=== PATIENT | female | born 1955 | race Caucasian/White ===

== ENCOUNTER 2022-06-01 09:15 | Observation (INO) ==
--- NOTE | 2022-04-26 14:07 | PAT Medication Instructions ---
Medication Instructions Date of Service April 26, 2022 Home Medications acetaminophen 325 mg tablet 325 mg PO QID PRN Pain ascorbic acid (vitamin C) 500 mg tablet,extended release (Vitamin C ER) 500 mg PO QAM fluticasone 250 mcg-salmeterol 50 mcg/dose blistr powdr for inhalation (Advair Diskus) 1 inh inhalation BID DO NOT take the morning of surgery ascorbic acid (vitamin C) 500 mg tablet,extended release (Vitamin C ER) 500 mg PO QAM Take morning of surgery With a small sip of water, OTHERWISE NOTHING TO EAT OR DRINK AFTER MIDNIGHT: acetaminophen 325 mg tablet 325 mg PO QID PRN Pain (if needed) fluticasone 250 mcg-salmeterol 50 mcg/dose blistr powdr for inhalation (Advair Diskus) 1 inh inhalation BID Take evening before surgery acetaminophen 325 mg tablet 325 mg PO QID PRN Pain (if needed) fluticasone 250 mcg-salmeterol 50 mcg/dose blistr powdr for inhalation (Advair Diskus) 1 inh inhalation BID Other Notes If you have any questions please call us at [phone] or [phone] or [phone] or [phone]
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
[~2022-06-01 09:15] MED LIST: ACETAMINOPHEN 500 MG TAB PO SCH; BUPIVACAINE 0.25% PF 30 ML VIAL ONE; BUPIVACAINE 0.5 % 5 MG/1 ML PF 10ML VIAL ONE; DEXAMETHASONE SOD INJ 4 MG/ML VIAL ONE; EPINEPHrine INJ 1 MG/ML AMP ONE; FAMOTIDINE 20 MG TAB PO SCH; GABAPENTIN 300 MG CAP PO SCH; LR 500ML BOLUS, THEN 15ML/HR IV SCH; METOCLOPRAMIDE HCL 10 MG TABLET PO SCH; ROPIVACAINE 0.5% HCL/PF 150 MG, BUPIVACAINE 0.75% MPF 20 ML, EPINEPHrine 30MG/30ML (OR ... INSTIL SCH; TRANEXAMIC ACID 1,000 MG **IV Intra-op IV SCH; TRANEXAMIC ACID 1,000 MG **IV Pre-op IV SCH; ceFAZolin 2000MG 2,000 MG/15 ML SYR IV SCH; dexAMETHasone 4 MG TAB PO SCH
--- NOTE | 2022-06-01 10:11 | History & Physical Bridge Note ---
Date of Service June 01, 2022 History & Physical Bridge Note I have examined the patient, reviewed the History & Physical and in the interval since the performance of the History & Physical I have noted the following changes of clinical significance: no changes noted
[2022-06-01] MEDS ORDERED: ePHEDrine sulfate 50 MG/ML AMP IV PRN (11:58)
[2022-06-01] MEDS ORDERED: ATROPINE SULFATE 0.1 MG/ML 10ML SYR IV PRN (11:58)
[2022-06-01] MEDS ORDERED: ONDANSETRON INJ 2 MG/ML 2 ML VIAL IV PRN ×2 (11:58→16:23)
[2022-06-01] MEDS ORDERED: fentaNYL citrate PF 100 MCG/2 ML VIAL IV PRN (11:58)
[2022-06-01] MEDS ORDERED: PROMETHAZINE HCL 6.25 MG in SODIUM CHLORIDE 0.9% 50 ML IV PRN (11:58)
[2022-06-01] MEDS ORDERED: MIDAZOLAM HCL 1 MG/ML 2ML VIAL ONE ×2 (12:06→14:07)
[2022-06-01] MEDS ORDERED: ORTHO JOINT ANESTHETIC ONE (12:25)
[2022-06-01] MEDS ORDERED: ONDANSETRON INJ 2 MG/ML 2 ML VIAL ONE (14:07)
[2022-06-01] MEDS ORDERED: PROPOFOL IV EMULSION 10 MG/ML 20 ML VIAL IV ONE (14:07)
--- NOTE | 2022-06-01 14:36 | Operative Report ---
Post Operative Report Pre & Post Diagnosis Operation Date: 06/01/22 11:55 Pre-Op Diagnosis: Left Knee Osteoarthritis Post-Op Diagnosis: Left Knee Osteoarthritis I identified the patient and participated in the time-out.: Yes Procedure Operation Date: 06/01/22 11:55 Actual Procedures p Left Total Knee Arthroplasty(Left) utilizing [employer] persona size femur 8 narrow tibia D poly 10 patella 28 abdelrahman- Chinedu Newby DO Surgeon Chinedu Newby DO Building Surveyor ENRIQUE Dietz Estimated Blood Loss 5 Findings Consistent with Post-Op Diagnosis Patient presents with severe end-stage tricompartmental degenerative joint disease present femur fracture with abnormality to her femoral bone varus alignment with range of motion from -10 degrees of full extension to 50 degrees of flexion preoperatively severe end-stage DJD eburnated [id number] marginal osteophytes large effusion Specimens Bone card Drains Medium bore Hemovac Anesthesia Type MAC Spinal Regional Complications none Disposition Accompanied Patient To Recovery: No Disposition: Recovery Room Indications Patient presents with severe end-stage tricompartmental DJD flexion contracture with range of motion of -10 degrees to flexion of 50 to 55 degrees she had previous femur fracture has some cerclage wire still in place with an abnormal bone to her femur she had a patient-matched block knee made she is failed attempted conservative management getting physical therapy anti-inflammatories relative rest corticosteroid injection viscosupplementation Description of Procedure After proper prepping and draping of the left lower extremity anterior midline incision was made over the region of the extensor extensor mechanism after meticulous hemostasis was obtained and maintained in subcutaneous tissues a medial parapatellar incision was made The patella was subluxed lateralward the medial lateral gutter were cleaned from any hypertrophic synovitis and scar tissue of the distal femoral block was placed and the distal femoral osteotomy cut was made subsequently the chamfers anterior and posterior osteotomy cuts were made utilizing the 4-in-1 block the tibia was subsequently subluxed anteriorward medial and ateral meniscal remnants were excised in their entirety remnants of the anterior and posterior cruciate ligaments were excised in their entirety excellent exposure of the proximal tibia was obtained the tibial osteotomy guide was placed on the proximal tibial osteotomy cut was made once again the knee was irrigated with copious amounts of sterile saline solution the patella was subsequently everted lateralward thickened scar tissue around the patella was removed the patella was subsequently cut utilizing a freehand technique and was drilled prepared for final preparation and placement of patella socially flexion-extension gaps were checked and the equal and symmetric trials were placed to the appropriate femoral and tibial trials with poly-spacer being placed for equal flexion and extension gaps and full range of motion including extension to 0 and flexion to 140 the trial components after having been taken to recovery range of motion was subsequently removed meticulous hemostasis was obtained and maintained subsequently a knee block injection of joint cocktail including ropivacaine 0.5% 150 mg. Bupivacaine 0.5% epinephrine 1-200,030 mL's toradol 30 mg dexamethasone 4 mg ketamine 10 mg clonidine 100 micrograms normal saline solution 30 mg was infiltrated into the soft tissues of the posterior knee medial lateral gutters and periosteal synovium special attention was paid to protect neurovascular structures at all times subsequently trial components having been removed the knee was irrigated with sterile saline solution. debris was removed the proximal tibia was subsequently prepared and was made ready for the placement of the tibial component tibial component was also cemented and tamped into position the femoral component was subsequently placed and cemented in the position the patellar component was subsequently cemented in position because hemostasis once again obtained and maintained wound having been thoroughly irrigated with debridement and debridement lavage was performed as well as a medial parapatellar incision closed with #1 Vicryl in interrupted fashion subcutaneous was closed with #2 Vicryl skin was closed with skin clips. PA-C was necessary for prepping and drapping as well as wound closure of deep fascia Sub cutaneous tissue and skin and was necessary for the case. A sterile compressive dressing was placed patient was taken to recovery in stable condition of report dictated by Odin I attest to the content of the Intraoperative Record and any orders documented therein. Any exceptions are noted below.Due to the complex nature of the procedure, the entire surgery was performed with the operational assistance of ENRIQUE Dietz. The hospital medical assistant, under direct supervision, was involved in the actual performance of all aspects of the surgical procedure including hemostasis, tissue retraction and incision, instrument management, patient positioning, and wound closure. I attest to the content of the Intraoperative Record and any orders documented therein. Any exceptions are noted below.
[2022-06-01] MEDS ORDERED: ESMOLOL HCL INJ 10 MG/ML 10ML VIAL IV ONE (14:37)
--- NOTE | 2022-06-01 15:59 | XRay Report ---
XR knee LT 1 or 2V routine HISTORY: 66 years-old Female Surgical Post Op left knee arthroplasty COMPARISON: None TECHNIQUE: 2 views of the left knee FINDINGS: Total joint arthroplasty with patellar resurfacing. Surgical drainage catheter with expected postoper ative soft tissue swelling and deep tissue air. No acute fracture, alignment or unexpected opaque for eign body. IMPRESSION: Total joint arthroplasty with expected postoperative changes. ACT 112: Negative or not required by law. The above report was generated using voice recognition software. It may contain grammatical, syntax o r spelling errors. Electronically signed by: Jose Ortega M.D. 06/01/2022 3:58 PM
[2022-06-01] MEDS ORDERED: diphenhydrAMINE Capsule 25 MG CAP PO PRN (16:23)
[2022-06-01] MEDS ORDERED: METOCLOPRAMIDE HCL INJ 5 MG/ML 2 ML VIAL IV PRN (16:23)
[2022-06-01] MEDS ORDERED: bisacodyL 10 MG SUPP PR PRN (16:23)
[2022-06-01] MEDS ORDERED: MAGNESIUM HYDROXIDE SUSP 30 ML UDC PO PRN (16:23)
[2022-06-01] MEDS ORDERED: HYDROmorphone INJ 1 MG/ML SYRINGE IV PRN (16:23)
[2022-06-01] MEDS ORDERED: SODIUM CHLORIDE 0.9% 1000ML 1,000 ML IV SCH (16:23)
[2022-06-01] MEDS ORDERED: NALOXONE HCL 0.4 MG/1 ML VIAL/CARP IV PRN (16:23)
[2022-06-01] MEDS ORDERED: oxyCODONE HCL IR 5 MG TAB (IMMEDIATE RELEASE) PO PRN (16:23)
--- NOTE | 2022-06-01 16:34 | Anesthesiology Progress Note ---
Date of Service June 01, 2022 Anesthesia Post Procedure Vital Signs Vital Signs: Temp Pulse Pulse Resp BP Pulse Ox O2 Del Method 06/01/22 15:50 84 16 147/88 H 100 Room Air 06/01/22 16:00 83 23 121/93 97 Room Air 06/01/22 15:45 36.7 C 74 22 126/80 98 Room Air 06/01/22 15:35 83 17 118/72 100 Room Air 06/01/22 15:25 93 H 19 135/62 100 Room Air 06/01/22 15:17 36.7 C 108 H 18 148/66 H 96 Oxymask 06/01/22 10:07 Room Air 06/01/22 10:07 36.8 C 94 H 20 159/75 H 97 Room Air O2 Flow Rate 06/01/22 15:50 06/01/22 16:00 06/01/22 15:45 06/01/22 15:35 06/01/22 15:25 06/01/22 15:17 6 06/01/22 10:07 06/01/22 10:07 Transfer of Care Handoff Completed per policy Notes Mental Status: alert / awake / arousable Patient Amnestic to Procedure: Yes Nausea / Vomiting: adequately controlled Pain: adequately controlled Airway Patency, RR, SpO2: stable & adequate BP & HR: stable & adequate Hydration State: stable & adequate Neuraxial Anesthesia: was administered and sensory block is resolving Anesthetic Complications: no major complications apparent and Pt Satisfied with anesthetic care
[2022-06-01] MEDS ORDERED: CETIRIZINE HCL 10 MG TABLET PO PRN (16:51)
[2022-06-01] MEDS: KETOROLAC TROMETHAMINE 15 MG/ML VIAL IV SCH ×2 (18:01→22:54)
[2022-06-01] MEDS: ASPIRIN 81 MG ECTAB PO SCH (20:19)
[2022-06-01] MEDS: DOCUSATE SODIUM 100 MG CAP PO SCH (20:19)
[2022-06-01] MEDS: ACETAMINOPHEN 500 MG TAB PO SCH (20:19)
[2022-06-01] MEDS ORDERED: SENNA 8.6 MG TAB PO SCH (21:00)
[2022-06-01] MEDS: ceFAZolin 2000MG 2,000 MG/15 ML SYR IV SCH (22:14)
[2022-06-02] MEDS: ACETAMINOPHEN 500 MG TAB PO SCH ×2 (05:45→13:10)
[2022-06-02] MEDS: KETOROLAC TROMETHAMINE 15 MG/ML VIAL IV SCH ×2 (05:45→13:11)
[2022-06-02] MEDS: ceFAZolin 2000MG 2,000 MG/15 ML SYR IV SCH (06:06)
[2022-06-02 06:47] LABS: Hematocrit (blood only) 35.2 % (37.0-47.0); Hemoglobin 12.3 g/dl (12.0-16.0); Mean Corpuscular Hemoglobin 30.1 pg (25.0-34.0); Mean Corpuscular Hgb Conc 34.9 g/dL (32.0-36.0); Mean Corpuscular Volume 86.1 fL (80.0-100.0); Mean Platelet Volume 9.7 fL (9.4-12.4); Platelet Count 244 K/uL (130-400); RDW Coefficient of Variation 12.2 % (11.5-14.5); RDW Standard Deviation 38.6 fL (36.4-46.3); Red Blood Count 4.09 M/uL (4.20-5.40); White Blood Count 12.86 K/ul (4.8-10.8)
[2022-06-02 07:06] LABS: BUN Creatinine Ratio 22.1 (10-20); Calcium 9.2 mg/dl (8.5-10.1); Creatinine Clr Calc Pharmacy 56.9 ml/min; Est GFR (African American) 72.3 ml/min; Est GFR (Non-African American) 62.4 ml/min; Potassium 4.2 mmol/L (3.5-5.1)
[2022-06-02] MEDS: DOCUSATE SODIUM 100 MG CAP PO SCH (07:37)
[2022-06-02] MEDS: ASPIRIN 81 MG ECTAB PO SCH (07:38)
[2022-06-02] MEDS ORDERED: MULTIVITAMIN TAB PO SCH (09:00)
[2022-06-02] MEDS ORDERED: ASCORBIC ACID 500 MG TAB PO SCH (09:00)
--- NOTE | 2022-06-02 10:46 | Orthopedic Progress Note ---
Date of Service June 02, 2022 Assessment & Plan (1) Arthritis of knee, left: Plan: Postop day 1 left total knee arthroplasty -PT/OT: Patient states that she progressed well with therapy today. -DVT prophylaxis: SCDs, teds, aspirin 81 mg twice daily -AM labs: Hemoglobin 12.3 from 14. -Pain management as written -Discharge planning: Plan on discharge home today with home health therapy. Admission and Anticipated Discharge Date Admission Date: June 01, 2022 Subjective Patient is postop day 1 left total knee. She is doing well this morning. Pain is well controlled. No other complaints. Denies chest pain, shortness of breath, dizziness/Lightheadedness, nausea/vomiting/diarrhea. Review of Systems Review of Systems: All systems reviewed & are unremarkable except as noted in Subjective Physical Exam Physical Exam: Left knee: Dressing is clean, dry, intact. Hemovac on suction. Toes are mobile with good dorsiflexion. No calf tenderness. Able to do a straight leg raise. Distally neurovascular status and sensation grossly intact. Results & Data Vital Signs (Past 12 Hours) Vital Signs Temp Pulse Resp BP Pulse Ox O2 Del Method 06/02/22 07:44 37.0 C 82 16 114/80 99 Room Air 06/02/22 04:00 36.5 C 62 16 127/71 97 Room Air 06/01/22 23:03 36.8 C 62 18 110/66 96 Room Air
--- NOTE | 2022-06-02 19:39 | Discharge Summary ---
Date of Service date of discharge: June 02, 2022 date of admission: 06/01/22 Admission HPI Per Admitting Provider Patient is a pleasant 66-year-old female who presented for preop evaluation prior to her left total knee replacement. She states that she been having pain in this knee for many years now which is gradually worsened and is now affecting her daily activities including walking standing using stairs. She has tried previous viscosupplementation as well as oral anti-inflammatories and Tylenol. She rates her current pain as a 7 out of 10. Pain is also waking her at night. At this point time is failed conservative measures and like proceed with a left total knee replacement Principal Diagnosis left knee arthritis Discharge Exam Musculoskeletal left knee: NVDI, calf SNT, negative khloe sign. DP palpable, able to wiggle toes/ankle movement without difficulty. JOSE dressing clean dry and intact. expected post-operative bruising noted. Discharge Data Allergies Allergy/AdvReac Type Severity Reaction Status Date / Time adhesive tape Allergy Intermediate Rash Verified 06/01/22 09:53 cinnamon Allergy Intermediate Anaphylaxis Verified 06/01/22 09:53 ciprofloxacin [From Cipro] Allergy Intermediate Hallucinati Verified 06/01/22 09:53 ng egg Allergy Intermediate Sleepy Verified 06/01/22 09:53 lemon Allergy Intermediate Anaphylaxis Verified 06/01/22 09:53 Sulfa (Sulfonamide Allergy Unknown Unknown Verified 06/01/22 09:53 Antibiotics) Procedures Performed Operation Date: 06/01/22 11:55 Actual Procedures p Left Total Knee Arthroplasty(Left) - Chinedu Newby DO Ordered Studies 06/01/22 05:00 US - OR guided needle placemen Routine Hospital Course (1) Arthritis of knee, left: Postop day 1 left total knee arthroplasty -PT/OT: Patient states that she progressed well with therapy today. -DVT prophylaxis: SCDs, teds, aspirin 81 mg twice daily -AM labs: Hemoglobin 12.3 from 14. -Pain management as written -Discharge planning: Plan on discharge home today with home health therapy. Total Time Total Time Spent Total Time Spent (In Minutes): 20 Discharge Plan Discharge Items Patient Disposition: Home - Home Health Services Reason For Visit: POST OP TKA Discharge Diagnosis: Left knee osteoarthritis Activity: Per Instructions section Non-emergency contact: Surgeon Call non-emergency contact if: you have any medication questions, your temperature is above 101, your wound has increased redness, your wound has increased drainage and your wound pain has increased Follow-up/Referrals: PCP,NO [Physician] - Diet: Regular Addtl Attending Provider Instructions: ACTIVITY RECOMMENDATIONS: SELF CARE INSTRUCTIONS AFTER TOTAL KNEE REPLACEMENT A. You may need to continue a physical therapy program after discharge from the hospital. There are several options available to you. Your doctor will assist you in selecting the best one for you. 1. An out-patient facility 2 to 3 times a week for therapy or home therapy. 2. Continue working on all exercises taught to you in the hospital. Your goals should be to increase bending of your knee to 90 degrees and beyond and to fully straighten your knee. B. You may progress at your own pace from walking with a walker or crutches to a cane; then to no assistive devices. C. Make walking a part of your daily routine. Be up as much as comfortable with rest periods throughout the day. Rest with leg elevation is very important. Use the ice wrap frequently for the first 3-4 weeks. D. There are no restrictions on activities. You may ride in a car, shop, participate in dry wall nailer and all social activities. E. Wear the long elastic stockings (AMANDA hose) 20 hours a day for 2 weeks after surgery. They can be removed several times a day for laundering and for a bath. F. You may shower, no tub baths until cleared by your doctor. SPECIAL CARE INSTRUCTIONS: VERY IMPORTANT TO READ AND REVIEW A. There are a few signs you need to watch for after you are home. Call [facility] if you notice any of the followin. Increased severe knee pain. Some pain is expected especially when you exercise. 2. Increased swelling in your leg or knee; pain or swelling of the calf muscle in either lower leg. 3. Any fluid drainage from the incision. 4. Shortness of breath or chest pain. B. Please call [facility] at if you have any concerns or questions about your operation or recovery. The doctor or his nurse will return your call promptly. C. You must take antibiotics before dental work, bladder, bowel or other surgery. Your doctor will provide you with a permanent care to carry describing this precaution. IMPORTANT: * REMEMBER TO TAKE ASPIRIN, 81 MG, TWICE DAILY FOR 4 WEEKS UNLESS OTHERWISE DIRECTED. THIS IS YOUR BLOOD THINNER. * HIGH RISK PATIENTS MAY BE PRESCRIBED A STRONGER BLOOD THINNER. THIS WILL BE PROVIDED AT DISCHARGE. * CALL IF INCREASED PAIN, REDNESS, DRAINAGE OR FEVER GREATER THAT 101. * WEAR AMANDA HOSE 20 HOURS PER DAY FOR 2 WEEKS. DRESSING INSTRUCTIONS * JOSE Dressing- This is a large suction dressing covering your incision. This will help pull any excess drainage from the wound and allow your incision to heal properly. You may shower with this if you can keep the unit outside of the shower. If any bleeding or leakage is noted please call your doctor's office. This will remain on your incision for 7 days and then should be removed. This can be done yourself or by the home nursing staff if applicable. The entire unit is disposable once removed. Once removed, keep incision clean and dry. If redness or drainage is noted, please call your surgeon. ONCE JOSE IS REMOVED, FOLLOW THESE INSTRUCTIONS: DERMABOND Prineo- This is a mesh tape dressing that is covered with glue. It should remain in place until the incision is properly healed, usually 10-14 days. This dressing is designed to naturally slough off. You may trim the excess mesh tape as it peels off. Incision may be briefly wet in a shower. Dry immediately by blotting with a clean, dry towel. Do not bath or swim until instructed by your doctor. Do not scratch, rub, or pick at the dressing. Do not apply any topical ointments or lotions until dressing is completely removed and/or instructed by your doctor. There may be a small piece of suture material at one end of your incision. Do not pull or trim this. If it is bothersome or catching on clothing, you may cover it with a band-aid. IF INCISION IS LEAKING THROUGH DRESSING, CALL THE OFFICE . FOLLOW UP VISIT: If appointment is not already scheduled: Please call [facility] to make a follow-up appointment for 2 weeks after your surgery at . Stand-Alone Forms: My [facility] Medications and DC Order Prescriptions: New acetaminophen [Tylenol Extra Strength] 500 mg Tablet 1,000 mg PO Q8 Qty: 60 0RF aspirin 81 mg Tablet,Delayed Release (Dr/Ec) 81 mg PO BID Qty: 60 0RF oxycodone 5 mg Tablet 5 - 10 mg PO .Q4h-6h MDD 6 PRN (Reason: pain) Qty: 12 0RF Rx Instructions: Initial therapy, Dr. Anderson supervising Continued ascorbic acid (vitamin C) [Vitamin C] 500 mg Tablet Extended Release 500 mg PO QAM cetirizine 5 mg Tablet 2.5 mg PO DAILY PRN (Reason: Pain) Rx Instructions: Makes her "very sleepy and groggy" Discontinued acetaminophen 325 mg Tablet 325 mg PO QID PRN (Reason: Pain) Rx Instructions: makes her "very sleepy" Admission Data Admit Date/Time: 06/01/22 15:23 Attending Provider: Chinedu Newby Admit Provider: Chinedu Newby Primary Care Provider: Daljit Leon Other Providers: [facility],Home Health Other Interventions: Discharge Summary Assessment (RN) Last Done: 06/02/22 12:30
== END 2022-06-02 14:15 | disposition home health service (06) ==
LOC: ASU 09:15 → 3E 09:15